=== PATIENT | male | born 1980 | race Caucasian/White ===

== ENCOUNTER 2018-07-04 09:37 | Emergency (ER) | payer MEDICAID ==
[~2018-07-04] VITALS: Ht 172.7 cm; Wt 71.4 kg
[2018-07-04 09:45] VITALS: BP 115/75
[2018-07-04] MEDS ORDERED: ketorolac tromethamine 15mg/ml inj. IM ONE (10:55)
[2018-07-04] MEDS ORDERED: IBUP-1985 PO (10:56)
== END 2018-07-04 11:22 | disposition home or self-care (01) ==
LOC: ER 09:38
DX: S16.1XXA Strain of muscle, fascia and tendon at neck level, initial encounter (principal); R51 Headache; X58.XXXA Exposure to other specified factors, initial encounter; Y93.89 Activity, other specified; Y92.89 Other specified places as the place of occurrence of the external cause; Y99.8 Other external cause status
CPT/HCPCS: 96372; 99283; J1885

== ENCOUNTER 2019-09-13 20:20 | Emergency (ER) | payer MEDICAID ==
[~2019-09-13] VITALS: Ht 172.7 cm; Wt 77.7 kg
[~2019-09-13 20:20] MED LIST: IBUP-1985 PO
[2019-09-13] MEDS ORDERED: TETanus/Pertussis (Acell)/Diphther VAC/PF (Tdap-Adult) 0.5ml syringe IMVAC ONE (21:20)
[2019-09-13] MEDS ORDERED: bacitracin 15gm ointment TP ONE (21:20)
[2019-09-13] MEDS ORDERED: LIDOcaine 1% W/epiNEPHrine 1:200,000 10ml vial IJ ONE (21:20)
[2019-09-13] MEDS ORDERED: amox tr/potassium clavulanate 875/125mg TAB PO STA (22:41)
[2019-09-13] MEDS ORDERED: ibuprofen tablet 400 MG TABLET PO ONE (22:45)
[2019-09-13] MEDS ORDERED: AMOX-422 PO (22:49)
[2019-09-13] MEDS ORDERED: IBUP-1984 PO (23:09)
[2019-09-13 23:16] VITALS: BP 120/89
== END 2019-09-13 23:18 | disposition home or self-care (01) ==
LOC: ER 20:21
DX: S46.222A Laceration of muscle, fascia and tendon of other parts of biceps, left arm, initial encounter (principal); S80.812A Abrasion, left lower leg, initial encounter; S80.811A Abrasion, right lower leg, initial encounter; S60.512A Abrasion of left hand, initial encounter; S60.511A Abrasion of right hand, initial encounter; Z72.89 Other problems related to lifestyle; Z79.899 Other long term (current) drug therapy; W54.0XXA Bitten by dog, initial encounter; Y93.89 Activity, other specified; Y92.89 Other specified places as the place of occurrence of the external cause; Y99.8 Other external cause status
CPT/HCPCS: 12005; 73060; 90471; 90715; 99283

== ENCOUNTER 2019-09-27 15:30 | Emergency (ER) | payer MEDICAID ==
[~2019-09-27] VITALS: Ht 172.7 cm; Wt 77.3 kg
[2019-09-27 15:41] VITALS: BP 137/97
[2019-09-27] MEDS ORDERED: DOXY100C77 PO (17:21)
== END 2019-09-27 17:34 | disposition home or self-care (01) ==
LOC: ER 15:31
DX: L03.114 Cellulitis of left upper limb (principal); S46.222D Laceration of muscle, fascia and tendon of other parts of biceps, left arm, subsequent encounter; Z79.899 Other long term (current) drug therapy; W54.0XXD Bitten by dog, subsequent encounter
CPT/HCPCS: 99283

== ENCOUNTER 2019-11-20 14:07 | Emergency (ER) | payer MEDICAID ==
[~2019-11-20] VITALS: Ht 172.7 cm; Wt 77.3 kg
[2019-11-20 14:25] VITALS: BP 109/82
== END 2019-11-20 15:53 | disposition home or self-care (01) ==
LOC: ER 14:08
DX: M70.22 Olecranon bursitis, left elbow (principal); M25.422 Effusion, left elbow; Z72.89 Other problems related to lifestyle; Z79.899 Other long term (current) drug therapy
CPT/HCPCS: 99281; 99282